=== PATIENT | male | born 1940 | race Caucasian/White ===

== ENCOUNTER 2023-08-31 20:52 | Inpatient (IN) | payer MEDICARE, OTHER ==
[~2023-08-31] VITALS: Ht 177.8 cm; Wt 73.0 kg
[2023-08-31 22:10] LABS: BASOPHILS % (AUTO) 0.3 % (0.0-2.0); EOSINOPHILS # (AUTO) 0.1 K/uL (0.0-0.7); EOSINOPHILS % (AUTO) 1.1 % (0.0-6.0); HEMATOCRIT 40 % (39-51); HEMOGLOBIN 13.1 g/dL (13.5-17.5); LYMPHOCYTES # (AUTO) 1.9 K/uL (0.8-4.8); LYMPHOCYTES % (AUTO) 24.5 % (20.0-44.0); MEAN CORPUSCULAR HEMOGLOBIN 30 PG (26.0-33.0); MEAN CORPUSCULAR HGB CONC 33 g/dl (31.0-36.0); MEAN CORPUSCULAR VOLUME 92 fL (80-96); MONOCYTES # (AUTO) 0.4 K/uL (0.1-1.30); MONOCYTES % (AUTO) 5.5 % (2.0-12.0); NEUTROPHILS # (AUTO) 5.2 K/uL (1.8-8.9); NEUTROPHILS % (AUTO) 68.6 % (43.0-81.0); PLATELET COUNT (AUTO) 98 K/uL (150-450); RED BLOOD CELL COUNT(AUTO) 4.35 MIL/uL (4.5-6.0); RED CELL DISTRIBUTION WIDTH 14.6 % (11.5-15.0); WHITE BLOOD COUNT (AUTO) 7.6 K/uL (4.3-11.0)
[2023-08-31] MEDS ORDERED: PANTOPRAZOLE 40 MG VIAL ONE (22:22)
[2023-08-31 22:25] LABS: INR 0.99 (0.91-1.10); PARTIAL THROMBOPLASTIN TIME 24.2 SEC (24.3-34.3); PROTHROMBIN TIME 10.5 SECS (9.2-11.1)
[2023-08-31] MEDS ORDERED: PANTOPRAZOLE 80 MG in IV NS 0.9% 100 ML IV ONE (22:30)
[2023-08-31] MEDS: PANTOPRAZOLE 80 MG in IV NS 0.9% 500 ML IV ONE ×2 (22:30→23:00)
[2023-08-31 22:38] LABS: CALCIUM, SERUM 8.4 mg/dL (8.5-10.1); CARBON DIOXIDE 27 mmol/L (21-32); CHLORIDE 105 mmol/L (98-107); CREATININE 1.2 mg/dL (0.6-1.3); GLUCOSE 96 mg/dL (74-106); POTASSIUM 4.2 mmol/L (3.5-5.1); SODIUM SERUM 140 mmol/L (136-145); UREA NITROGEN, BLOOD 27 mg/dL (7-18)
[2023-09-01] VITALS (10 sets, daily range): BP systolic 108–158; BP diastolic 62–81; TEMP 97.3–98.1; O2SAT 96–99
[2023-09-01 00:51] LABS: BAND % (MANUAL) 2 % (0.0-5.0); EOSINOPHILS % (MANUAL) 1 % (0-4); LYMPHOCYTES % (MANUAL) 28 % (16-48); MONOCYTES % (MANUAL) 8 % (0-11.0); NEUTROPHILS % (MANUAL) 61 (42-76); PLATELET ESTIMATE DECRE
[2023-09-01] MEDS ORDERED: Z GUARD REMEDY 4 OZ OINT TP PRN (01:30)
[2023-09-01] MEDS ORDERED: IV D5/0.45 NACL 1,000 ML IV PRN (01:30)
[2023-09-01] MEDS ORDERED: MORPHINE SULFATE INJ 2 MG/ML DISP.SYRIN IV PRN (01:30)
[2023-09-01] MEDS ORDERED: ONDANSETRON HCL/PF 4 MG/2 ML VIAL IVP PRN (01:30)
[2023-09-01 02:15] LABS: ALANINE AMINOTRANSFERASE 45 U/L (12-78); ALBUMIN 3.4 g/dL (3.4-5.0); ALKALINE PHOSPHATASE 41 U/L (46-116); ASPARTATE AMINOTRANSFERASE 27 U/L (15-37); BILIRUBIN,DIRECT 0.1 mg/dL (0.0-0.2); BILIRUBIN,TOTAL 0.3 mg/dL (0.2-1.0); TOTAL PROTEIN, SERUM 6.2 g/dL (6.4-8.2)
[2023-09-01] MEDS ORDERED: PANTOPRAZOLE 40 MG VIAL IV SCH (09:00)
[2023-09-01] MEDS ORDERED: LEVO100T9 PO (09:11)
[2023-09-01] MEDS ORDERED: ASPI-1420 PO (09:11)
[2023-09-01] MEDS ORDERED: LINA72CA PO (09:11)
[2023-09-01] MEDS ORDERED: RIBO100T6 PO (09:11)
[2023-09-01] MEDS ORDERED: ICOS1CAP PO (09:11)
[2023-09-01] MEDS ORDERED: MEMA10TA PO (09:11)
[2023-09-01] MEDS ORDERED: GABA-532 PO (09:11)
[2023-09-01] MEDS ORDERED: EZET10TA16 PO (09:11)
[2023-09-01] MEDS ORDERED: PARO10TA4 PO (09:11)
[2023-09-01] MEDS ORDERED: ROSU20TA2 PO (09:11)
[2023-09-01] MEDS: ATORVASTATIN 40 MG TABLET PO SCH (09:24)
[2023-09-01] MEDS: PAROXETINE HCL 10 MG TABLET PO SCH (09:30)
[2023-09-01] MEDS: LEVOTHYROXINE SODIUM 100 MCG TABLET PO SCH (09:30)
[2023-09-01] MEDS: EZETIMIBE 10 MG TABLET PO SCH (09:30)
[2023-09-01] MEDS ORDERED: Medication Not On Formulary EA (Icosapent Ethyl (Vascepa) 1 GM) PO SCH (09:30)
[2023-09-01] MEDS: GABAPENTIN 100 MG CAPSULE PO SCH (09:30)
[2023-09-01] MEDS ORDERED: FLUCONAZOLE IN NS 100 MG in PREMIX 1 EA IV SCH ×2 (14:00)
[2023-09-01] MEDS: FLUCONAZOLE (100 MG) 100 MG TABLET PO SCH (15:20)
[2023-09-01] MEDS: MEMANTINE HCL 5 MG TABLET PO SCH (16:27)
[2023-09-01] MEDS: PANTOPRAZOLE 40 MG/PACK PACK PO SCH (20:39)
[2023-09-02] VITALS: BP 128/75; TEMP 97.3; O2SAT 98
[2023-09-02 04:00] VITALS: BP 137/73; TEMP 97.5; O2SAT 98
[2023-09-02 04:25] VITALS: BP 137/73; TEMP 97.5; O2SAT 98
[2023-09-02 06:57] LABS: BASOPHILS # (AUTO) 0.1 K/uL (0.0-0.2); BASOPHILS % (AUTO) 0.8 % (0.0-2.0); EOSINOPHILS # (AUTO) 0.1 K/uL (0.0-0.7); EOSINOPHILS % (AUTO) 1.6 % (0.0-6.0); HEMATOCRIT 42 % (39-51); LYMPHOCYTES # (AUTO) 2.7 K/uL (0.8-4.8); LYMPHOCYTES % (AUTO) 35.4 % (20.0-44.0); MEAN CORPUSCULAR HEMOGLOBIN 30 PG (26.0-33.0); MEAN CORPUSCULAR HGB CONC 33 g/dl (31.0-36.0); MEAN CORPUSCULAR VOLUME 92 fL (80-96); MONOCYTES # (AUTO) 0.5 K/uL (0.1-1.30); MONOCYTES % (AUTO) 6.1 % (2.0-12.0); NEUTROPHILS # (AUTO) 4.3 K/uL (1.8-8.9); NEUTROPHILS % (AUTO) 56.1 % (43.0-81.0); PLATELET COUNT (AUTO) 121 K/uL (150-450); RED CELL DISTRIBUTION WIDTH 14.5 % (11.5-15.0); WHITE BLOOD COUNT (AUTO) 7.6 K/uL (4.3-11.0)
[2023-09-02] MEDS ORDERED: FLUC200T PO (07:00)
[2023-09-02] MEDS ORDERED: PANT20TA2 PO (07:00)
[2023-09-02 07:27] LABS: CALCIUM, SERUM 8.9 mg/dL (8.5-10.1); CARBON DIOXIDE 33 mmol/L (21-32); CHLORIDE 105 mmol/L (98-107); CREATININE 1.3 mg/dL (0.6-1.3); GLUCOSE 86 mg/dL (74-106); MAGNESIUM 2.2 mg/dL (1.8-2.4); PHOSPHORUS 3.6 mg/dL (2.5-4.9); POTASSIUM 4.1 mmol/L (3.5-5.1); SODIUM SERUM 141 mmol/L (136-145); UREA NITROGEN, BLOOD 21 mg/dL (7-18)
[2023-09-02 07:29] LABS: IRON, SERUM 47 ug/dl (50-175); TOTAL IRON BINDING CAPACITY 251 ug/dl (250-450)
[2023-09-02] MEDS: LEVOTHYROXINE SODIUM 100 MCG TABLET PO SCH (07:33)
[2023-09-02 07:38] LABS: CHOLESTEROL 141 mg/dL (<200); HDL CHOLESTEROL 68 mg/dL (40-60); LDL 42 mg/dL (0-99); THYROID STIMULATING HORMONE < 0.007 uIU/mL (0.358-3.74); TRIGLYCERIDES 185 mg/dL (30-150)
[2023-09-02] MEDS: GABAPENTIN 100 MG CAPSULE PO SCH (08:15)
[2023-09-02] MEDS: FLUCONAZOLE (100 MG) 100 MG TABLET PO SCH (08:15)
[2023-09-02] MEDS: ATORVASTATIN 40 MG TABLET PO SCH (08:15)
[2023-09-02] MEDS: PANTOPRAZOLE 40 MG/PACK PACK PO SCH (08:15)
[2023-09-02] MEDS: PAROXETINE HCL 10 MG TABLET PO SCH (08:15)
[2023-09-02] MEDS: MEMANTINE HCL 5 MG TABLET PO SCH (08:15)
[2023-09-02] MEDS: EZETIMIBE 10 MG TABLET PO SCH (08:15)
[2023-09-02 08:30] VITALS: BP 116/65; TEMP 97.9; O2SAT 98
[2023-09-02] MEDS ORDERED: FLUCONAZOLE (100 MG) 100 MG TABLET PO SCH (09:00)
[2023-09-02] MEDS ORDERED: Medication Not On Formulary EA (Linaclotide (Linzess) 72 MCG) PO SCH (09:00)
[2023-09-02] MEDS ORDERED: RIBOFLAVIN 100 MG PO SCH (09:00)
== END 2023-09-02 12:00 | disposition home or self-care (01) | DRG 392 ==
LOC: ER 20:58 → TELE 09-01 00:36
PROVIDERS: ADMIT Nurse Practitioner Family; ATTEND Nurse Practitioner Family
PROC: 0DB58ZX Excision of Esophagus, Via Natural or Artificial Opening Endoscopic, Diagnostic (ICD-10-PCS; principal; 2023-09-01)
DX: K29.70 Gastritis, unspecified, without bleeding (principal); B37.81 Candidal esophagitis; I10 Essential (primary) hypertension; I25.10 Atherosclerotic heart disease of native coronary artery without angina pectoris; Z95.5 Presence of coronary angioplasty implant and graft; Z95.0 Presence of cardiac pacemaker; Z85.46 Personal history of malignant neoplasm of prostate; Z90.79 Acquired absence of other genital organ(s); Z98.890 Other specified postprocedural states; D69.6 Thrombocytopenia, unspecified; I48.91 Unspecified atrial fibrillation; Z79.82 Long term (current) use of aspirin; Z79.899 Other long term (current) drug therapy
CPT/HCPCS: 36415; 71045-TC; 80048-TC; 80061-TC; 80076-TC; 83540-TC; 83735-TC; 84100-TC; 84443-TC; 85025-TC; 85730-TC; 86850-TC; A4216; A4223; C9113; G0378; J1450; J2704; J3490; J7030; J7040